=== PATIENT | male | born 1935 | race Caucasian/White ===

== ENCOUNTER 2019-02-13 06:37 | Day surgery (SDC) | payer MEDICARE, OTHER ==
[2019-02-12 14:48] LABS: APTT 28.8 SECONDS (22.8-39.4); INR 1.22 (0.85-1.17); PROTIME 14.9 SECONDS (11.6-15.0)
[2019-02-12 14:52] LABS: BASOPHILS 0.4 % (0-2); EOSINOPHILS 1.7 % (0-7); HEMATOCRIT 38.9 % (42.0-54.0); HEMOGLOBIN 12.9 g/dL (13.5-17.5); IMMATURE GRANULOCYTES 0.1 % (0-5); LYMPHOCYTES 34.5 % (15-50); MCH 29.6 pg (26.0-34.0); MCHC 33.2 g/dL (31.0-37.0); MCV 89.2 fL (80.0-100.0); MEAN PLATELET VOLUME 9.4 fL (7.4-10.4); MONOCYTES 10.4 % (2-11); NEUTROPHILS 52.9 % (40-80); PLATELET COUNT 234 10x3/uL (130-400); RBC 4.36 10x6/uL (4.20-6.10); RDW 14.5 % (11.5-14.5); WBC 7.6 10x3/uL (4.8-10.8)
[2019-02-12 14:56] LABS: CALC OSMOLALITY 285 mosm/kg (275-300); CALCIUM 8.3 mg/dL (8.5-10.1); CHLORIDE - SERUM 106 mmol/L (98-107); GLUCOSE 121 mg/dL (74-106); POTASSIUM - SERUM 4.1 mmol/L (3.5-5.1); SODIUM 141 mmol/L (136-145); UREA NITROGEN 25 mg/dL (7-18); eGFR NON AFRICAN AMERICAN 76 mL/min (90-120)
[~2019-02-13] VITALS: Ht 175.3 cm; Wt 78.9 kg
[~2019-02-13 06:37] MED LIST: AMIODARONE HCL200 MG PO; BAYER CHEWABLE81 MG PO; CRESTOR10 MG PO; SLOW RELEASE I160 MG PO
[2019-02-13] MEDS ORDERED: FLOMAX0.4 MG PO (08:23)
[2019-02-13 08:28] VITALS: BP 144/74; Ht 175.3 cm; Wt 78.9 kg
--- NOTE | 2019-02-13 11:05 | NUR ---
REC'D FROM SURGERY. FAMILY AT BEDSIDE. RELATES HAS URGE TO URINATE.
--- NOTE | 2019-02-13 11:15 | NUR ---
AMBULATED TO THE BATHROOM AND VOIDED WITHOUT DIFFICULTY.
--- NOTE | 2019-02-13 11:29 | OP ---
PATIENT NAME: SRINIVASA CRENSHAW MEDICAL RECORD: [id number] :35 LOCATION:D.OPS ADMISSION DATE: SURGEON: DREW MATIAS MD DATE OF OPERATION: 02/13/2019 SURGEON: Drew Matias MD ANESTHESIA: TIVA by Delicia Kimble CRNA. DIAGNOSES: Obstructive BPH. PSA was 0.3 (09/27/2017). DONALD 40 gram prostate, IPSS is 7, quality of life score is 5 with tamsulosin. FINDINGS: Bladder neck obstruction. Single ureteral orifices bilaterally with no bladder tumors. PROCEDURE: UroLift times 4 in a box configuration. BLOOD LOSS: None. CLINICAL HISTORY: This is an 83-year-old male, who has obstructive BPH symptoms including a weak urinary stream with nocturia times 4 to 6. He has been on tamsulosin twice a day for some time. This gives him lightheadedness upon arising from bed. He comes now to have the UroLift procedure done. HE IS ALLERGIC TO FISH. He was given [employer] to the OR. DESCRIPTION OF PROCEDURE: The patient was given IV sedation. He was then placed into the lithotomy position and prepped and draped. The UroLift scope was introduced. Findings are as outlined above. Since the obstruction was at the bladder neck level, 4 units were placed, 1.5 cm distal to the bladder neck. The anterior 2 were placed right at the anterolateral sulcus of the lateral lobe. There was 1 unit on each side. At the mid prosthetic urethral level, 1 unit was placed on each side to complete the box. The bladder neck was now wide open. The bladder was left partly full for a voiding trial. I will see the patient in followup in 1 months' time. TRANSINT:[id number] Voice Confirmation ID: [id number] DOCUMENT ID: [id number] DREW MATIAS MD at 1129 CC: [id number] DICTATION DATE: 02/13/19 1104 PAINTER AND DECORATOR APPRENTICE: 02/13/19 [id number] [place] [address]
--- NOTE | 2019-02-13 12:00 | NUR ---
FL DIET SERVED TO PT. FAMILY AT BEDSIDE.
--- NOTE | 2019-02-13 12:30 | NUR ---
WRITTEN AND VERBAL DC INST. GIVEN TO PT. VERBALIZED UNDERSTANDING.
--- NOTE | 2019-02-13 12:30 | NUR ---
TOLERATED DIET. IV DC'D WITH CATHETER INTACT.
--- NOTE | 2019-02-13 12:38 | NUR ---
DC'D HOME WITH FAMILY VIA PRIVATE VEHICLE. STABLE AT TIME OF DC.
== END 2019-02-13 12:38 | disposition home or self-care (01) ==
LOC: D.OPS 06:37 → D.PAN 07:30 → D.OPS 07:30 → D.PAN 09:00 → D.OPS 09:00 → D.PAN 09:30 → D.OPS 09:30
PROVIDERS: Anesthesiology; ATTEND Urology
DX: N40.1 Benign prostatic hyperplasia with lower urinary tract symptoms (principal); N13.8 Other obstructive and reflux uropathy; Z01.812 Encounter for preprocedural laboratory examination

== ENCOUNTER → 2019-06-09 07:01 | Outpatient (CLI) | payer MEDICARE, OTHER ==
[2019-02-13 08:28] VITALS: BMI 25.7
[~2019-06-09 07:01] MED LIST changes: +FLOMAX0.4 MG PO
== END | disposition home or self-care (01) ==
LOC: D.CT 07:01
PROVIDERS: ATTEND Family Medicine
DX: R10.13 Epigastric pain (principal)